=== PATIENT | male | born 2000 | race Hispanic/Latino ===

== ENCOUNTER → 2023-09-21 | Emergency (ER) | payer SELFPAY ==
[~2023-09-21] MED LIST: ACETAMINOPHEN 500 MG TAB ONE
[2023-09-21 10:59] LABS: SARS-CoV-2 Antigen Rapid Res Positive (Negative)
--- NOTE | 2023-09-21 11:14 | EDPHYS ---
Physician Documentation [facility] Name: Hitesh Benito Age: 23 yrs Sex: Male : 2000 Arrival Date: 09/21/2023 Time: 09:43 Bed 12 Private MD: ED Physician Bonilla Jhaveri HPI: 09/20 09:48 This 23 yrs old Male presents to ER via Unassigned with complaints of Fever, jh7 Body aches, Chills. 09:48 Onset: The symptoms/episode began/occurred 2 day(s) ago. Associated signs and symptoms: jh7 Pertinent positives: arthralgias, chills, cough, runny nose, Pertinent negatives: abdominal pain, chest pain, shortness of breath. The patient's had COVID 1 week ago. Positive exposure.. Historical: - Allergies: 10:05 No Known Allergies; nj1 - PMHx: 10:05 None; nj1 - Immunization history:: Adult Immunizations unknown. - Social history:: Smoking status: unknown. ROS: 09:48 Eyes: Negative for injury, pain, redness, and discharge, Neck: Negative for injury, jh7 pain, and swelling, Cardiovascular: Negative for chest pain, palpitations, and edema, Abdomen/GI: Negative for abdominal pain, nausea, vomiting, diarrhea, and constipation, Back: Negative for injury and pain, MS/Extremity: Negative for injury and deformity, Skin: Negative for injury, rash, and discoloration, Neuro: Negative for headache, weakness, numbness, tingling, and seizure, 09:48 Constitutional: Positive for body aches, chills, fever, malaise, 09:48 ENT: Positive for nasal discharge, 09:48 Respiratory: Positive for cough, Negative for shortness of breath, wheezing, 09:48 All other systems are negative, Exam: 09:48 Constitutional: This is a well developed, well nourished patient who is awake, alert, jh7 and in no acute distress. Head/Face: Normocephalic, atraumatic. Neck: Trachea midline, no thyromegaly or masses palpated, and no cervical lymphadenopathy. Supple, full range of motion without nuchal rigidity, or vertebral point tenderness. No Meningismus. Cardiovascular: Regular rate and rhythm with a normal S1 and S2. No gallops, murmurs, or rubs. Normal PMI, no JVD. No pulse deficits. Respiratory: Lungs have equal breath sounds bilaterally, clear to auscultation and percussion. No rales, rhonchi or wheezes noted. No increased work of breathing, no retractions or nasal flaring. Abdomen/GI: Soft, non-tender, with normal bowel sounds. No distension or tympany. No guarding or rebound. No evidence of tenderness throughout. Back: No spinal tenderness. No costovertebral tenderness. Full range of motion. Skin: Warm, dry with normal turgor. Normal color with no rashes, no lesions, and no evidence of cellulitis. MS/ Extremity: Pulses equal, no cyanosis. Neurovascular intact. Full, normal range of motion. Neuro: Awake and alert, GCS 15, oriented to person, place, time, and situation. Motor strength 5/5 in all extremities. Sensory grossly intact. Normal gait. 09:48 ENT: Posterior pharynx: pooling of secretions, that are mild, Vital Signs: 09:52 BP 144 / 84; Pulse 106; Resp 18; Temp 100.8(O); Pulse Ox 100% on R/A; Weight 76 kg; nj1 Height 5 ft. 6 in. ; 11:13 BP 138 / 86; Pulse 88; Resp 16; Temp 98.4(TE); Pulse Ox 100% on R/A; Pain 1/10; hb 09:52 Body Mass Index 26.30 (76.00 kg, 170 cm) ma1 11:13 Pain Scale: Adult hb MDM: 09:48 Patient medically screened. [facility] 11:15 Differential diagnosis: viral Infection, bacterial infection, URI. Data reviewed: vital [facility] signs, nurses notes, lab test result(s). I considered the following discharge prescriptions or medication management in the emergency department Medications were administered in the Emergency Department. See MAR. Historians other than the Patient: Spouse/Significant Other: . Counseling: I had a detailed discussion with the patient and/or guardian regarding the historical points, exam findings, and any diagnostic results supporting the discharge/admit diagnosis, to return to the emergency department if symptoms worsen or persist or if there are any questions or concerns that arise at home. 09/20 09:57 Order name: SARS RAPID; Complete Time: 11:12 [facility] 09/20 09:57 Order name: Flu; Complete Time: 11:12 [facility] Administered Medications: 10:17 Drug: Acetaminophen PO 1000 mg PO once Route: PO; nj1 11:14 Follow up: Response: No adverse reaction; Temperature is decreased; Pain is decreased hb Disposition Summary: 09/21/23 11:12 Discharge Ordered Notes: Location: Home [facility] Problem: new [facility] Symptoms: are unchanged [facility] Condition: Stable [facility] Diagnosis - Coronavirus infection, unspecified [facility] Followup: [facility] - With: Private Physician - When: 2 - 3 days - Reason: Recheck today's complaints Discharge Instructions: - Discharge Summary Sheet [facility] - COVID-19 7 - 10 Things You Can Do to Manage Your COVID-19 Symptoms at Home - [facility] (01/27/2021) [facility] Forms: - Work release form hb - Medication Reconciliation Form [facility] - Thank You Letter [facility] - Antibiotic Education [facility] - Patient Portal Instructions [facility] - Leadership Thank You Letter [facility] Prescriptions: - albuterol sulfate 90 mcg/actuation Inhalation HFA Aerosol Inhaler - inhale 1 puff INHALATION route every 4 to 6 hours As needed; 1 Each; Refills: [facility] 0, Product Selection Permitted - Tessalon Perles 100 mg Oral Capsule - take 1 capsule ORAL route every 8 hours As needed; 15 capsule; Refills: 0, 7 Product Selection Permitted Signatures: Dispatcher [employer] Marisol Dixon, FERRY HAND FERRY HAND 7 Valerie Jensen RN RN nj1 Lori Boateng RN Corrections: (The following items were deleted from the chart) 09:59 09:48 This 23 yrs old Male presents to ER via Unassigned with complaints of jh7 Fever, Body aches, Chills. 7
--- NOTE | 2023-09-21 11:14 | ER ---
Nurse's Notes [facility] Name: Hitesh Benito Age: 23 yrs Sex: Male : 2000 Arrival Date: 09/21/2023 Time: 09:43 Bed 12 Private MD: Diagnosis: Coronavirus infection, unspecified Presentation: 09/20 09:52 Chief complaint: Patient states: Cough, chills and body aches today. Girlfriend dx with deny COVID Saturday. Has not taken ibuprofen/tylenol. 09:52 Coronavirus screen: chills, cough unrelated to allergies. Ebola Screen: Patient denies nj1 travel to an Ebola-affected area in the 21 days before illness onset. Initial Sepsis Screen: Does the patient meet any 2 criteria? HR > 90 bpm. No. Patient's initial sepsis screen is negative. Does the patient have a suspected source of infection? No. Patient's initial sepsis screen is negative. Risk Assessment: Do you want to hurt yourself or someone else? Patient reports no desire to harm self or others. Onset of symptoms was September 21, 2023. 09:52 Method Of Arrival: Ambulatory [facility] 09:52 Acuity: [facility] 4 [facility] Triage Assessment: 10:02 General: Appears in no apparent distress. Behavior is calm, cooperative. Pain: Pain hb currently is 4 out of 10 on a pain scale. Neuro: Level of Consciousness is awake, alert, obeys commands, Oriented to person, place, time, situation. Cardiovascular: Patient's skin is warm and dry. Respiratory: Respiratory effort is even, unlabored, Respiratory pattern is regular, symmetrical. Musculoskeletal: Reports body aches. Historical: - Allergies: 10:05 No Known Allergies; nj1 - PMHx: 10:05 None; nj1 - Immunization history:: Adult Immunizations unknown. - Social history:: Smoking status: unknown. Screenin:20 [facility] ED Fall Risk Assessment (Adult) History of falling in the last 3 months, hb including since admission No falls in past 3 months (0 pts) Confusion or Disorientation No (0 pts) Intoxicated or Sedated No (0 pts) Impaired Gait No (0 pts) Mobility Assist Device Used No (0 pt) Altered Elimination No (0 pt) Score/Fall Risk Level 0 - 2 = Low Risk Oriented to surroundings, Maintained a safe environment, Educated pt \T\ family on fall prevention, incl call for assistance when getting out of bed. Abuse screen: Denies threats or abuse. Denies injuries from another. Nutritional screening: No deficits noted. Tuberculosis screening: No symptoms or risk factors identified. Assessment: 11:04 General: Appears in no apparent distress. Behavior is calm, cooperative. Pain: Pain hb currently is 4 out of 10 on a pain scale. Neuro: Level of Consciousness is awake, alert, obeys commands, Oriented to person, place, time, situation. Cardiovascular: Patient's skin is warm and dry. Respiratory: Respiratory effort is even, unlabored, Respiratory pattern is regular, symmetrical. GI: No signs and/or symptoms were reported involving the gastrointestinal system. : No signs and/or symptoms were reported regarding the genitourinary system. EENT: No signs and/or symptoms were reported regarding the EENT system. Derm: Skin is pink, warm \T\ dry. Musculoskeletal: Reports body aches. Vital Signs: 09:52 BP 144 / 84; Pulse 106; Resp 18; Temp 100.8(O); Pulse Ox 100% on R/A; Weight 76 kg; nj1 Height 5 ft. 6 in. ; 11:13 BP 138 / 86; Pulse 88; Resp 16; Temp 98.4(TE); Pulse Ox 100% on R/A; Pain 1/10; hb 09:52 Body Mass Index 26.30 (76.00 kg, 170 cm) nj1 11:13 Pain Scale: Adult hb ED Course: 09:46 Patient arrived in ED. ra3 09:48 [facility] 7 09:48 Bonilla Jhaveri MD is Attending Physician. jh7 10:05 Triage completed. nj1 10:05 Arm band placed on. nj1 10:15 Flu Sent. bc6 10:15 SARS RAPID Sent. bc6 10:15 COVID swab sent to lab. Flu and/or RSV swab sent to lab. hb 10:20 Patient has correct armband on for positive identification. Provided Education on: hb tests, result times. Client placed on continuous cardiac and pulse oximetry monitoring. NIBP monitoring applied. Pulse ox on. NIBP on. 11:04 No provider procedures requiring assistance completed. Patient did not have IV access hb during this emergency room visit. 11:08 Notified ED physician of a critical lab result(s). COVID POSITIVE. hb 11:09 Lori Boateng, RN is Primary Nurse. Administered Medications: 10:17 Drug: Acetaminophen PO 1000 mg PO once Route: PO; nj1 11:14 Follow up: Response: No adverse reaction; Temperature is decreased; Pain is decreased hb Medication: 11:04 VIS not applicable for this client. hb Outcome: 11:12 Discharge ordered by MD. cruz 11:24 Discharged to home ambulatory, with family, 11:24 Condition: stable 11:24 Discharge instructions given to patient, family, Instructed on discharge instructions, follow up and referral plans. medication usage, Demonstrated understanding of instructions, follow-up care, medications, Prescriptions given X 2, 11:25 Patient left the ED. Signatures: Lori Boateng, RN RN Marisol Mejia, [employer] 7 Leni Jacques 6 Valerie Jensen RN RN nj1 Chikis Guevara 3
[2023-09-21 11:38] VITALS: BP 138/86; TEMP 98.4; O2SAT 100
== END ==
LOC: ER 09:43
DX: U07.1 COVID-19 (principal)
CPT/HCPCS: 36415; 87804; 87811; 99284